=== PATIENT | female | born 1980 | race Caucasian/White ===

== ENCOUNTER 2017-03-30 14:34 | Emergency (ER) | payer MEDICAID, OTHER ==
[~2017-03-30] VITALS: Ht 167.6 cm; Wt 110.6 kg
[~2017-03-30 14:34] MED LIST: IBUP400 PO; PERC10TA27 PO
[2017-03-30 14:40] VITALS: BP 128/85; PULSE 98; RESP 16; TEMP 98.1; O2SAT 98
[2017-03-30] MEDS ORDERED: POLY10O EACH EYE (15:18)
--- NOTE | 2017-03-30 15:18 | PD ---
HPI Chief Complaint: Eye Problems/Injury Time Seen by Provider: 15:13 Travel History International Travel<30 days: No Contact w/Intl Traveler<30days: No Traveled to known affect area: No History of Present Illness HPI Patient presents with complaints of right eye redness for 2 days. Denies any exposure to metal or sand denies working in the yard. She does work at [employer]. Unknown sick contacts. She does have contacts but has not been wearing her right contact denies any vision loss. Denies any matting PFSH Past Medical History Blood Disorders: No Depression: Yes Cancer: No Cardiovascular Problems: No Chemotherapy: No Diminished Hearing: No Endocrine: No Gastrointestinal Disorders: No Genitourinary: No Immune Disorder: No Musculoskeletal: No Neurologic: No Psychiatric: No Reproductive: No Respiratory: No Radiation Therapy: No ?: Not LMP: 2 WEEKS Past Surgical History Abdominal Surgery: Yes AICD: No Arteriovenous Shunt: No Section: Yes Insulin Pump: No Joint Replacement: No Pacemaker: No Other Surgery: Yes (DONATED A KIDNEY) Social History Alcohol Use: Yes (OCCAS) Tobacco Use: Yes (SOCIALLY) Substance Use: No Allergies-Medications (Allergen,Severity, Reaction): Coded Allergies: Morphine (Verified Adverse Reaction, Severe, VOMITING, 03/30/17) Reported Meds & Prescriptions Reported Meds & Active Scripts Active Motrin 400 mg Tab (Ibuprofen) 400 Mg Tab 400 Mg PO Q8 PRN Percocet 10/325 (Oxycodone/Acetaminophen) Tab 1 Tab PO Q6H PRN PRN PAIN Review of Systems General / Constitutional: No: Fever Eyes: Positive: Drainage, Redness, Tearing, No: Visual changes HENT: No: Headaches Cardiovascular: No: Chest Pain or Discomfort Respiratory: No: Shortness of Breath Gastrointestinal: No: Abdominal Pain Genitourinary: No: Dysuria Musculoskeletal: No: Pain Skin: No Rash Neurologic: No: Weakness Psychiatric: No: Depression Endocrine: No: Polydipsia Hematologic/Lymphatic: No: Easy Bruising Physical Exam Narrative GENERAL: Well-nourished, well-developed patient. SKIN: Focused skin assessment warm/dry. HEAD: Normocephalic. EYES: No scleral icterus. Pupils equal round reactive light accommodation, left conjunctiva is erythematous NECK: Supple, trachea midline. No JVD or lymphadenopathy. CARDIOVASCULAR: Regular rate and rhythm without murmurs, gallops, or rubs. RESPIRATORY: Breath sounds equal bilaterally. No accessory muscle use. GASTROINTESTINAL: Abdomen soft, non-tender, nondistended. MUSCULOSKELETAL: No cyanosis, or edema. BACK: Nontender without obvious deformity. No CVA tenderness. Data Data Last Documented VS Vital Signs Date Time Temp Pulse Resp B/P Pulse Ox O2 Delivery O2 Flow Rate FiO2 03/30/17 14:40 98.1 98 16 128/85 98 MDM Medical Decision Making Medical Screen Exam Complete: Yes Emergency Medical Condition: Yes Differential Diagnosis Conjunctivitis, corneal abrasion, uveitis Narrative Course Assessment and plan discussed with patient at bedside Diagnosis Primary Impression: Conjunctivitis Qualified Code: H10.31 - Acute conjunctivitis of right eye, unspecified acute conjunctivitis type Additional Instructions: Encourage frequent handwashing, encouraged to not use her contacts in that eye. Encouraged follow-up with PCP or return to the emergency room if symptoms worsen. Med/Other Pt SpecificInfo: Prescription(s) given Scripts Polymyxin B-Trimethoprim Opth Drops (Polytrim Opth Drops)10,000-0.1 Unit/Ml-% Soln1 Drop EACH EYE Q6HR #1 BOTTLE Ref 0 Prov:Fransico Dugan MD 03/30/17 Disposition: 01 DISCHARGE HOME Condition: Good Fransico Dugan MD March 30, 2017 15:18
== END 2017-03-30 15:29 | disposition home or self-care (01) ==
LOC: PHEFT 14:34
DX: H10.31 Unspecified acute conjunctivitis, right eye (principal)
CPT/HCPCS: 99282